=== PATIENT | female | born 1935 | race Native Hawaiian/Other Pacific Islander ===

== ENCOUNTER 2018-12-04 14:40 | Emergency (ER) | payer OTHER, MEDICARE ==
[~2018-12-04] VITALS: Ht 165.1 cm; Wt 82.1 kg
[2018-12-04] MEDS ORDERED: MEMANTINE HCL10 MG PO ×2 (15:15)
[2018-12-04] MEDS ORDERED: TRAZODONE HYDRO50 MG PO (15:16)
[2018-12-04] MEDS ORDERED: BUSPIRONE10 MG PO (15:16)
[2018-12-04] MEDS ORDERED: DONE5TAB PO (15:16)
[2018-12-04] MEDS ORDERED: MYRBETRIQ25 MG PO (15:17)
[2018-12-04] MEDS ORDERED: PAROXETINE40 MG PO (15:18)
[2018-12-04] MEDS ORDERED: GABA300C2 PO (15:18)
[2018-12-04] MEDS ORDERED: LIPITOR40 MG PO (15:18)
[2018-12-04] MEDS ORDERED: LISI20TA11 PO (15:19)
[2018-12-04 15:29] LABS: PLATELET COUNT 266 K/uL (152-353)
[2018-12-04 15:43] LABS: SODIUM 143 mmol/L (136-145)
[2018-12-04 18:02] VITALS: BP 147/100; TEMP 97.7
[2018-12-04] MEDS ORDERED: NAMENDA10 MG PO (18:27)
== END 2018-12-04 18:02 | disposition other institution (70) ==
LOC: ED 14:40
PROVIDERS: Emergency Medicine
DX: F28 Other psychotic disorder not due to a substance or known physiological condition (principal); Z79.899 Other long term (current) drug therapy
CPT/HCPCS: 80053; 80307; 80320; 80329; 81000; 85027; 93005; 99285